=== PATIENT | male | born 2000 | race African-American/Black ===

== ENCOUNTER 2024-04-19 20:16 | Emergency (ER) | payer MEDICAID ==
[~2024-04-19] VITALS: Ht 177.8 cm; Wt 59.0 kg
[2024-04-19 20:25] VITALS: O2SAT 100
[2024-04-19] MEDS: KETOROLAC 15MG/ML VIAL IM ONE (21:02)
[2024-04-19] MEDS ORDERED: NAPR-1176 MT (22:00)
[2024-04-19] MEDS ORDERED: LIDO700A15 TP (22:00)
[2024-04-19 23:22] VITALS: BP 136/65; PULSE 99; RESP 18; TEMP 36.66960; O2SAT 100
== END 2024-04-19 23:23 | disposition home or self-care (01) ==
LOC: ER 21:26
DX: S13.4XXA Sprain of ligaments of cervical spine, initial encounter (principal); S23.3XXA Sprain of ligaments of thoracic spine, initial encounter; V89.2XXA Person injured in unspecified motor-vehicle accident, traffic, initial encounter; Y93.89 Activity, other specified; Y92.89 Other specified places as the place of occurrence of the external cause; Y99.8 Other external cause status
CPT/HCPCS: 99283; 96372; J1885